=== PATIENT | male | born 1950 ===

== ENCOUNTER → 2017-09-03 13:44 | Outpatient (REF) | payer MEDICARE, SELFPAY | LOC: LAB 13:44 | PROVIDERS: Visit Provider Family Medicine | DX: S20.469A Insect bite (nonvenomous) of unspecified back wall of thorax, initial encounter (principal); W57.XXXA Bitten or stung by nonvenomous insect and other nonvenomous arthropods, initial encounter | CPT/HCPCS: 87070; 87077; 87186; 87205 ==